=== PATIENT | female | born 1975 | race Caucasian/White ===

== ENCOUNTER 2016-05-19 14:39 | Emergency (ER) | payer BC ==
[~2016-05-19 14:39] MED LIST: ALBUAER19 INH; CETI10TA99 PO; MISCCAP80 PO; SUCR1TAB29 PO
[2016-05-19 14:44] VITALS: TEMP 36.8; Ht 167.6 cm
[2016-05-19] MEDS ORDERED: ONDANSETRON INJ 2 MG/ML 2 ML VIAL IV STA (15:02)
[2016-05-19] MEDS ORDERED: MoRPHine SULFATE 10 MG/ML CARP/VIAL IV STA (15:02)
[2016-05-19] MEDS ORDERED: SODIUM CHLORIDE 0.9% 1000ML 1,000 ML IV ONE (15:15)
[2016-05-19 15:39] LABS: BASO % 0.3 %; BASO ABS # 0.04 K/uL (0-0.2); COMPLETE YES; EOS % 3.9 %; HEMATOCRIT 39.5 % (37-47); IG% 0.2 %; LYMPH % 15.8 %; LYMPH ABS # 1.96 K/uL (1.2-3.4); MEAN CELL VOLUME 88.2 fL (80-100); MEAN CORPUSCULAR HGB CONC 35.2 g/dl (32-36); MEAN PLATELET VOLUME 9.5 fL (7.4-10.4); NEUT % 73.8 %; PLATELET COUNT 254 K/uL (130-400); RED BLOOD COUNT 4.48 M/uL (4.2-5.4); WHITE BLOOD COUNT 12.44 K/uL (4.8-10.8)
[2016-05-19] MEDS ORDERED: ZNTT/150 PO (15:47)
[2016-05-19] MEDS ORDERED: ASCA500 PO (15:48)
[2016-05-19] MEDS ORDERED: IBUP-1050 PO (15:48)
[2016-05-19] MEDS ORDERED: NAPR-1169 PO (15:48)
[2016-05-19 15:53] LABS: URINE APPEARANCE CLEAR (CLEAR); URINE BILIRUBIN NEG (NEG); URINE COLOR YELLOW; URINE NITRITE NEG (NEG); URINE PH 5.5 (4.5-7.5); URINE SPECIFIC GRAVITY 1.004 (1.000-1.030); UROBILINOGEN NEG (NEG); ZZUR CULT IF INDIC CLEAN CATCH NO
[2016-05-19 15:55] LABS: ALT/SGPT 21 U/L (12-78); BLOOD UREA NITROGEN 10 mg/dl (7-18); BUN/CREATININE RATIO 10.5 (10-20); CALCIUM 9.2 mg/dl (8.5-10.1); CARBON DIOXIDE 27 mmol/L (21-32); CHLORIDE 105 mmol/L (98-107); CREATININE 0.93 mg/dl (0.60-1.20); GLUCOSE 85 mg/dl (70-99); POTASSIUM 3.5 mmol/L (3.5-5.1); SODIUM 141 mmol/L (136-145)
[2016-05-19 15:58] LABS: ALB/GLOB RATIO 1.1 (0.9-2); ALKALINE PHOSPHATASE 71 U/L (45-117); AST/SGOT 17 U/L (15-37)
--- NOTE | 2016-05-19 16:09 | DIAGNOSTIC IMAGING REPORT ---
CT SCAN OF THE ABDOMEN AND PELVIS WITHOUT IV CONTRAST CLINICAL HISTORY: Right lower quadrant abdominal pain. COMPARISON STUDY: Abdominal CT dated 07/20/2015. TECHNIQUE: CT scan of the abdomen and pelvis is performed from the lung bases to the proximal femora. Images are reviewed in the axial, sagittal, and coronal planes. IV contrast was not administered for this examination as per the referring clinician. Note that the examination was performed in suboptimal fashion without oral and IV contrast. Automated dose control exposure was utilized. CT DOSE: 321.26 mGy.cm FINDINGS: Lung bases: The heart is normal in size and without pericardial effusion. The lung bases are clear. Liver: The unenhanced liver is normal in size, contour, and attenuation. There is no intrahepatic biliary ductal dilatation. Gallbladder: Surgically absent noting clips in the gallbladder fossa. Spleen: Normal in size and attenuation. Pancreas: Unremarkable. Adrenal glands: Unremarkable. Kidneys: The unenhanced kidneys are normal in size and without hydronephrosis. There are no renal calculi identified. There is no evidence of contour deforming renal mass lesion. Abdominal vasculature: The abdominal aorta is normal in course and caliber. Bowel: The small bowel and colon are normal in course and caliber. The appendix is well-visualized and normal. Peritoneum: There is no intraperitoneal free air or abdominal ascites. There is a small fat-containing umbilical hernia. Lymphadenopathy: None. Pelvic viscera: The bladder, uterus, and adnexa are normal as visualized. A surgical clip is noted in the left pelvis. Small ovarian follicles are incidentally noted. There is trace free fluid in the cul-de-sac. Skeletal structures: No lytic or blastic lesions are seen. A hemangioma is noted in the body of L2. IMPRESSION: 1. Suboptimal examination without oral and IV contrast. 2. There are no acute infectious or inflammatory findings in the abdomen or pelvis. 3. There is trace and likely physiologic free fluid in the cul-de-sac. Electronically signed by: Conner Lucio M.D. 05/19/2016 4:08 PM Dictated Date/Time: 05/19/2016 4:01 PM
[2016-05-19 16:17] LABS: MANUAL MICROSCOPIC REQUIRED? NO; REVIEW REQ? NO
[2016-05-19] MEDS ORDERED: KETOROLAC TROMETHAMINE 30 MG/ML VIAL IV STA (17:08)
[2016-05-19] MEDS ORDERED: METHYLPREDNISOLONE 125 MG VIAL IV STA (17:18)
[2016-05-19] MEDS ORDERED: PRED50TA PO (18:36)
[2016-05-19] MEDS ORDERED: CYCL10TA6 PO (18:36)
[2016-05-19] MEDS ORDERED: OXYC1TAB3 PO (18:36)
[2016-05-19 18:56] VITALS: BP 120/73; PULSE 63; O2SAT 95
--- NOTE | 2016-05-19 20:42 | EMERGENCY ROOM VISIT NOTE ---
History First contact with patient: 14:51 Chief Complaint: FLANK PAIN Stated Complaint: PAIN IN RT SIDE AND RT BACK PAIN-PAINFUL TO SIT History of Present Illness The patient is a 41 year old female who presents to the Emergency Room with complaints of severe right-sided back and right-sided flank pain that began about 5 or 6 hours ago. The patient states that she was in her shower, and was bending over to shave her legs when she felt extreme pain in her right side back. She states the pain shot down her back to her right hip and down her leg. The patient does not have a history of kidney stones or back injury in the past. She has not had fever or chills. Certain positions do worsen her discomfort. She is most comfortable with standing. She rates her discomfort an 8/10 and has not taken anything [id number] for her discomfort. She went to her primary care physician's office, who referred her to the ER for further management. Review of Systems More than 10 systems were reviewed and otherwise negative with the exception of history of present illness. Past Medical/Surgical History Medical Problems: (1) Gastro-Esophageal Reflux Disease Without Esophagitis (2) Heartburn Family History No pertinent family history Social History Smoking Status: Never Smoker Occupation Status: employed Current/Historical Medications Scheduled Ascorbic Acid (Vitamin C), 500 MG PO BID Cyclobenzaprine Hcl (Flexeril), 10 MG PO TID Ibuprofen (Advil), 200-600 MG PO Q4H Oxycodone Immediate Rel Tab (Roxicodone Ir), 1-2 TAB PO Q6 Prednisone (Prednisone), 50 MG PO DAILY Probiotic Product (Probiotic), 1 CAP PO AMPM Ranitidine (Zantac), 150 MG PO DAILY Scheduled PRN Naproxen (Naprosyn), 500 MG PO DAILY PRN for Pain Allergies Coded Allergies: Cinnamon (Verified Allergy, Intermediate, "TONGUE AND LIPS SWELL", 05/19/16) Uncoded Allergies: UNCOOKED VEGETABLES (Allergy, Intermediate, "TONGUE AND LIPS SWELL", 07/20/15 ) APPLES (Allergy, Unknown, GI SYMPTOMS, 07/20/15) Physical Exam Vital Signs Date Time Temp Pulse Resp B/P Pulse Ox O2 Delivery O2 Flow Rate FiO2 05/19/16 18:56 63 18 120/73 95 05/19/16 18:03 58 05/19/16 17:00 63 20 130/88 98 Room Air 05/19/16 14:44 36.8 82 20 143/89 99 Room Air Pain Rating (0-10): 0 Physical Exam VITALS: Vitals are noted on the nurse's note and reviewed by myself. Vital signs stable. GENERAL: Well-developed, well-nourished, white female who is pacing in the emergency department room. She appears quite uncomfortable. Examination was performed with the patient in the standing position., HEAD: Normocephalic atraumatic. NECK: Supple without nuchal rigidity. No lymphadenopathy. No thyromegaly. Cervical spine is nontender. HEART: Regular rate and rhythm without murmurs gallops or rubs. LUNGS: Clear to auscultation bilaterally without wheezes, rales or rhonchi. No retractions or accessory muscle use. ABDOMEN: Positive normal bowel sounds x 4. Soft, nontender, without masses or organomegaly. No guarding or rebound tenderness. No CVA tenderness. MUSCULOSKELETAL: No muscle atrophy, erythema, or edema noted. Full range of motion without joint tenderness in all extremities. Positive lower lumbar and right SI joint tenderness on palpation. No saddle paresthesias. Medical Decision & Procedures ER Provider Diagnostic Interpretation: CT SCAN OF THE ABDOMEN AND PELVIS WITHOUT IV CONTRAST CLINICAL HISTORY: Right lower quadrant abdominal pain. COMPARISON STUDY: Abdominal CT dated 07/20/2015. TECHNIQUE: CT scan of the abdomen and pelvis is performed from the lung bases to the proximal femora. Images are reviewed in the axial, sagittal, and coronal planes. IV contrast was not administered for this examination as per the referring clinician. Note that the examination was performed in suboptimal fashion without oral and IV contrast. Automated dose control exposure was utilized. CT DOSE: 321.26 mGy.cm FINDINGS: Lung bases: The heart is normal in size and without pericardial effusion. The lung bases are clear. Liver: The unenhanced liver is normal in size, contour, and attenuation. There is no intrahepatic biliary ductal dilatation. Gallbladder: Surgically absent noting clips in the gallbladder fossa. Spleen: Normal in size and attenuation. Pancreas: Unremarkable. Adrenal glands: Unremarkable. Kidneys: The unenhanced kidneys are normal in size and without hydronephrosis. There are no renal calculi identified. There is no evidence of contour deforming renal mass lesion. Abdominal vasculature: The abdominal aorta is normal in course and caliber. Bowel: The small bowel and colon are normal in course and caliber. The appendix is well-visualized and normal. Peritoneum: There is no intraperitoneal free air or abdominal ascites. There is a small fat-containing umbilical hernia. Lymphadenopathy: None. Pelvic viscera: The bladder, uterus, and adnexa are normal as visualized. A surgical clip is noted in the left pelvis. Small ovarian follicles are incidentally noted. There is trace free fluid in the cul-de-sac. Skeletal structures: No lytic or blastic lesions are seen. A hemangioma is noted in the body of L2. IMPRESSION: 1. Suboptimal examination without oral and IV contrast. 2. There are no acute infectious or inflammatory findings in the abdomen or pelvis. 3. There is trace and likely physiologic free fluid in the cul-de-sac. Laboratory Results 05/19/16 15:20 Red Blood Count 4.48, Mean Corpuscular Volume 88.2, Mean Corpuscular Hemoglobin 31.0, Mean Corpuscular Hemoglobin Concent 35.2, Mean Platelet Volume 9.5, Neutrophils (%) (Auto) 73.8, Lymphocytes (%) (Auto) 15.8, Monocytes (%) (Auto) 6.0, Eosinophils (%) (Auto) 3.9, Basophils (%) (Auto) 0.3, Neutrophils # (Auto) 9.18, Lymphocytes # (Auto) 1.96, Monocytes # (Auto) 0.75, Eosinophils # (Auto) 0.48, Basophils # (Auto) 0.04 05/19/16 15:20 Test 05/19/16 15:20 05/19/16 15:25 White Blood Count 12.44 K/uL (4.8-10.8) Red Blood Count 4.48 M/uL (4.2-5.4) Hemoglobin 13.9 g/dL (12.0-16.0) Hematocrit 39.5 % (37-47) Mean Corpuscular Volume 88.2 fL (80-100) Mean Corpuscular Hemoglobin 31.0 pg (25-34) Mean Corpuscular Hemoglobin Concent 35.2 g/dl (32-36) Platelet Count 254 K/uL (130-400) Mean Platelet Volume 9.5 fL (7.4-10.4) Neutrophils (%) (Auto) 73.8 % Lymphocytes (%) (Auto) 15.8 % Monocytes (%) (Auto) 6.0 % Eosinophils (%) (Auto) 3.9 % Basophils (%) (Auto) 0.3 % Neutrophils # (Auto) 9.18 K/uL (1.4-6.5) Lymphocytes # (Auto) 1.96 K/uL (1.2-3.4) Monocytes # (Auto) 0.75 K/uL (0.11-0.59) Eosinophils # (Auto) 0.48 K/uL (0-0.5) Basophils # (Auto) 0.04 K/uL (0-0.2) RDW Standard Deviation 40.5 fL (36.4-46.3) RDW Coefficient of Variation 12.6 % (11.5-14.5) Immature Granulocyte % (Auto) 0.2 % Immature Granulocyte # (Auto) 0.03 K/uL (0.00-0.02) Anion Gap 9.0 mmol/L (3-11) Estimated GFR () 87.2 Estimated GFR (Non- 75.3 BUN/Creatinine Ratio 10.5 (10-20) Calcium Level 9.2 mg/dl (8.5-10.1) Total Bilirubin 0.7 mg/dl (0.2-1) Aspartate Amino Transf (AST/SGOT) 17 U/L (15-37) Alanine Aminotransferase (ALT/SGPT) 21 U/L (12-78) Alkaline Phosphatase 71 U/L (45-117) Total Protein 8.7 gm/dl (6.4-8.2) Albumin 4.6 gm/dl (3.4-5.0) Globulin 4.1 gm/dl (2.5-4.0) Albumin/Globulin Ratio 1.1 (0.9-2) Lipase 237 U/L (73-393) Urine Color YELLOW Urine Appearance CLEAR (CLEAR) Urine pH 5.5 (4.5-7.5) Urine Specific [place] 1.004 (1.000-1.030) Urine Protein NEG (NEG) Urine Glucose (UA) NEG (NEG) Urine Ketones NEG (NEG) Urine Occult Blood NEG (NEG) Urine Nitrite NEG (NEG) Urine Bilirubin NEG (NEG) Urine Urobilinogen NEG (NEG) Urine Leukocyte Esterase NEG (NEG) Medications Administered Medications (Trade) Dose Ordered Sig/[facility] Route Start Time Stop Time Status Last Admin Dose Admin Morphine Sulfate 8 mg 8 mg NOW STAT IV 05/19/16 15:02 05/19/16 15:04 DC 05/19/16 15:41 8 MG Sodium Chloride (Nss 1000ml) 1,000 ml @ 999 mls/hr Q1H1M ONCE IV 05/19/16 15:15 05/19/16 16:15 DC 05/19/16 15:40 999 MLS/HR Ondansetron HCl (Zofran Inj) 4 mg NOW STAT IV 05/19/16 15:02 05/19/16 15:04 DC 05/19/16 15:40 4 MG Ketorolac Tromethamine (Toradol Inj) 30 mg NOW STAT IV 05/19/16 17:08 05/19/16 17:11 DC 05/19/16 17:49 30 MG Methylprednisolone Sodium Succinate (Solu-Medrol IV) 125 mg NOW STAT IV 05/19/16 17:18 05/19/16 17:19 DC 05/19/16 17:49 125 MG ED Course Physical exam and history were performed. Nursing notes and EMR were reviewed. Patient appears to have right-sided back/flank pain for the past one day. The patient's symptoms do appear positional in nature, however she is quite uncomfortable on exam. She does not have an obvious injury or trauma, and because of this IV access was established and labs were obtained. Patient was hydrated with normal saline and given IV morphine and IV Zofran for comfort. I did elect to perform a CT scan out of concern for possible ureteral calculi. The patient's blood work is as above and was reviewed. She does have a slightly elevated white blood cell count, which is felt to be from stress. She does not have significant anemia, bandemia, or gross electrolyte imbalance. Lipase and transaminases are nondiagnostic. CT scan did not show acute findings. The patient did have some dizziness after being given morphine, and once she had a normal CT scan I did elect to give her IV Toradol and IV Solu-Medrol. After about 1 hour, the patient was reexamined, and she was significantly improved after Toradol and Solu-Medrol. She was able to sit comfortably in her emergency department bed. I was able to confirm that her deep tendon reflexes are intact, and she does not have saddle paresthesias. Overall the patient does appear stable for discharge home. I suspect that her symptoms are related to a musculoskeletal etiology. I recommended that she follow with her primary care physician for further care and management. She was otherwise invited back to the ER with any new, worsening, or concerning symptoms. The chart was completed utilizing [employer] Speech Voice Recognition Software. Grammatical errors, random word insertions, pronoun errors, and incomplete sentences are an occasional consequence of this system due to software limitations, ambient noise, and hardware issues. Any formal questions or concerns about the content, text, or information contained within the body of this dictation should be directly addressed to the provider for clarification. . Medical Decision Differential diagnosis: Etiologies such as musculoskeletal, disc herniation, fracture, aortic disease, metastatic disease, cord compression, discitis, infection, renal colic, gastrointestinal, acute exacerbation of chronic back pain, sciatica, cauda equina, as well as others were entertained. Impression Primary Impression: Right-sided back pain Departure Information Dispostion Home / Self-Care Condition GOOD Prescriptions Prednisone (Prednisone) 50 Mg Tab 50 MG PO DAILY for 4 Days, TAB Prov: Naseem Santo PA-C 05/19/16 Cyclobenzaprine Hcl (FLEXERIL) 10 Mg Tab 10 MG PO TID for 5 Days, #15 TAB Prov: Naseem Santo PA-C 05/19/16 Oxycodone Immediate Rel Tab (ROXICODONE IR) 5 Mg Tab 1-2 TAB PO Q6, #24 TAB Prov: Naseem Santo PA-C 05/19/16 Forms HOME CARE DOCUMENTATION FORM, IMPORTANT VISIT INFORMATION Patient Instructions My [facility] Additional Instructions You were seen and evaluated today on an emergency basis only. This is not a substitute for, or an effort to provide, complete comprehensive medical care. It is not possible to recognize and treat all injuries or illnesses in a single emergency department visit. For this reason it is recommended that you followup with your primary care physician's office in the next 2-3 days for recheck of your condition. For baseline pain relief you may alternate ibuprofen and acetaminophen every 4 hours for pain control. Take 600 mg ibuprofen (Advil) and then 4 hours later take 1000 mg acetaminophen (Tylenol). Do not take more than 3000 mg acetaminophen in a single day. Oxycodone (OxyIR) 5mg: Take ONE pill every SIX hours for breakthrough pain. Avoid alcohol, operating machinery or dangerous equipment, working on ladders or roofs, DRIVING, or situations where being under the influence may be dangerous. It is recommended to use an llqg-[id number]-[id number] stool softener such as Colace, 100mg twice daily while taking this medication to avoid constipation. Take prednisone as prescribed Flexeril 1 tablet up to 3 times a day as needed for muscle spasms. No driving, working, or alcohol use with Flexeril. You are welcome to return to the emergency department anytime with new, worsening, or concerning symptoms.
== END 2016-05-19 18:59 | disposition home or self-care (01) ==
LOC: C.EDB 14:43 → C.EDC 18:59
DX: M54.5 Low back pain (principal); K21.9 Gastro-esophageal reflux disease without esophagitis; R12 Heartburn; Z79.899 Other long term (current) drug therapy

== ENCOUNTER → 2016-05-21 | Outpatient (CLI) | payer BC ==
[~2016-05-21] MED LIST changes: +ASCA500 PO; +CYCL10TA6 PO; +IBUP-1050 PO; +NAPR-1169 PO; +OXYC1TAB3 PO; +PRED50TA PO; +ZNTT/150 PO
[2016-05-21 13:08] LABS: BASO % 0.2 %; BASO ABS # 0.02 K/uL (0-0.2); COMPLETE YES; EOS % 0.8 %; HEMATOCRIT 38.3 % (37-47); IG% 0.3 %; LYMPH % 15.1 %; MEAN CELL VOLUME 92.5 fL (80-100); MEAN CORPUSCULAR HEMOGLOBIN 31.2 pg (25-34); MEAN CORPUSCULAR HGB CONC 33.7 g/dl (32-36); MEAN PLATELET VOLUME 10.4 fL (7.4-10.4); MONO % 4.9 %; NEUT % 78.7 %; PLATELET COUNT 235 K/uL (130-400); RED BLOOD COUNT 4.14 M/uL (4.2-5.4); WHITE BLOOD COUNT 11.93 K/uL (4.8-10.8)
[2016-05-21 13:16] LABS: ALT/SGPT 60 U/L (12-78); AST/SGOT 18 U/L (15-37); BLOOD UREA NITROGEN 11 mg/dl (7-18); BUN/CREATININE RATIO 10.4 (10-20); CALCIUM 8.5 mg/dl (8.5-10.1); CARBON DIOXIDE 28 mmol/L (21-32); CHLORIDE 108 mmol/L (98-107); GLUCOSE 93 mg/dl (70-99); MAGNESIUM 2.4 mg/dl (1.8-2.4); SODIUM 143 mmol/L (136-145)
[2016-05-21 13:19] LABS: ALB/GLOB RATIO 1.3 (0.9-2); ALKALINE PHOSPHATASE 66 U/L (45-117)
[2016-05-21 13:24] LABS: URINE APPEARANCE CLEAR (CLEAR); URINE BILIRUBIN NEG (NEG); URINE COLOR YELLOW; URINE EPITHELIAL CELL AUTO 0-5 /lpf (0-5); URINE NITRITE NEG (NEG); URINE PH 5.5 (4.5-7.5); UROBILINOGEN NEG (NEG); ZZUR CULT IF INDIC CLEAN CATCH NO
[2016-05-21 13:36] LABS: MANUAL MICROSCOPIC REQUIRED? NO; REVIEW REQ? NO
== END | disposition home or self-care (01) ==
LOC: C.RADBC 10:36
PROVIDERS: ATTEND Internal Medicine
DX: M25.551 Pain in right hip (principal); R10.9 Unspecified abdominal pain

== ENCOUNTER → 2016-05-21 | Outpatient (CLI) | payer BC ==
--- NOTE | 2016-05-21 14:25 | DIAGNOSTIC IMAGING REPORT ---
SINGLE VIEW PELVIS; 2 VIEWS RIGHT HIP; 2 VIEWS LEFT HIP CLINICAL HISTORY: Right hip pain. FINDINGS: An AP supine view of the pelvis with AP and frog-leg views of the right hip as well as AP and frog-leg views of the left hip are obtained. Correlation is made with pelvic CT dated 05/19/2016. The skeletal structures are well mineralized. No fracture is seen in the hips or bony pelvis. The joint spaces of the hips appear preserved. Mild sclerotic change is noted in the sacroiliac joints and pubic symphysis. The overlying soft tissues are within normal limits. A surgical clip and phleboliths are identified in the pelvis. There is a nonobstructed abdominal bowel gas pattern. IMPRESSION: No acute bony abnormality is seen in the hips or bony pelvis. These structures were better characterized on the pelvic CT performed 2 days previously. Electronically signed by: Conner Lucio M.D. 05/21/2016 2:23 PM Dictated Date/Time: 05/21/2016 2:20 PM
== END | disposition home or self-care (01) ==
LOC: C.RADBC 11:07
PROVIDERS: ATTEND Internal Medicine
DX: M25.551 Pain in right hip (principal)

== ENCOUNTER → 2016-10-19 | Outpatient (CLI) | payer BC ==
[~2016-10-19] MED LIST changes: -ALBUAER19 INH; -CETI10TA99 PO; -CYCL10TA6 PO; -PRED50TA PO; -SUCR1TAB29 PO
--- NOTE | 2016-10-19 13:43 | MAMMOGRAPHY REPORT ---
BILATERAL DIGITAL SCREENING MAMMOGRAM TOMOSYNTHESIS WITH CAD: 10/19/2016 TECHNIQUE: Breast tomosynthesis in addition to standard 2D mammography was performed. Current study was also evaluated with a Computer Aided Detection (CAD) system. COMPARISON: Comparison is made to exams dated: 10/19/2015 mammogram and 10/07/2014 mammogram - [facility]. BREAST COMPOSITION: The tissue of both breasts is almost entirely fatty. FINDINGS: No suspicious masses, calcifications, or areas of architectural distortion are noted in ei ther breast. There has been no significant interval change compared to prior exams. Left inferior br east asymmetry on the MLO view is stable dating back to the 2014 exam and has the appearance of ángela l fibroglandular tissue on the tomosynthesis images. IMPRESSION: ACR BI-RADS CATEGORY 2: BENIGN There is no mammographic evidence of malignancy. A 1 year screening mammogram is recommended. The pa tient will receive written notification of the results. Approximately 10% of breast cancers are not detected with mammography. A negative mammographic report should not delay biopsy if a clinically suggestive mass is present. Yuli Benton M.D. ah/:10/19/2016 09:44:25 Septic Tank Cleaner: Saida Johnson RT(R)(M)(BD), [facility] letter sent: Normal 1/2 BI-RADS Code: ACR BI-RADS Category 2: Benign
== END | disposition home or self-care (01) ==
LOC: C.MAMM 09:02
PROVIDERS: ATTEND Internal Medicine
DX: Z12.31 Encounter for screening mammogram for malignant neoplasm of breast (principal)

== ENCOUNTER → 2017-08-08 | Outpatient (CLI) | payer BC ==
[~2017-08-08] MED LIST changes: -OXYC1TAB3 PO; +RANI150T85 PO; -ZNTT/150 PO
== END | disposition home or self-care (01) ==
LOC: C.LABMFLN 13:41
PROVIDERS: ATTEND Internal Medicine
DX: R30.0 Dysuria (principal); R31.9 Hematuria, unspecified

== ENCOUNTER → 2017-10-23 | Outpatient (CLI) | payer BC ==
[~2017-10-23] MED LIST changes: -NAPR-1169 PO; +NAPR-22 PO
--- NOTE | 2017-10-24 14:44 | MAMMOGRAPHY REPORT ---
BILATERAL DIGITAL SCREENING MAMMOGRAM TOMOSYNTHESIS WITH CAD: 10/23/2017 CLINICAL HISTORY: Routine screening. Patient has no complaints. TECHNIQUE: The study was acquired using full field digital technology and interpreted from soft copy. Breast tomosynthesis in addition to standard 2D mammography was performed. Current study was also ev aluated with a Computer Aided Detection (CAD) system. COMPARISON: Comparison is made to exams dated: 10/19/2016 mammogram, 10/19/2015 mammogram, and 10/07/2014 mammogram - [facility]. BREAST COMPOSITION: There are scattered areas of fibroglandular density in both breasts. FINDINGS: The parenchymal pattern is unchanged. No developing mass, architectural distortion or cluster of susp icious microcalcifications is seen in either breast. IMPRESSION: ACR BI-RADS CATEGORY 2: BENIGN There is no mammographic evidence of malignancy. A 1 year screening mammogram is recommended.( 019) The patient will receive written notification of the results. Some breast cancers are not detected with mammography. A negative mammographic report should not vidya y biopsy if a clinically suggestive mass is present. Mimi Alex M.D. ay/:10/23/2017 17:55:30 Trade Embalmer: RT Abena(Terry)(Damion), [facility] letter sent: Normal 1/2 BI-RADS Code: ACR BI-RADS Category 2: Benign
== END | disposition home or self-care (01) ==
LOC: C.MAMM 09:16
PROVIDERS: ATTEND Internal Medicine
DX: Z12.31 Encounter for screening mammogram for malignant neoplasm of breast (principal)